=== PATIENT | male | born 1990 | race Caucasian/White ===

== ENCOUNTER 2017-12-04 11:05 | Emergency (ER) | payer MEDICAID ==
[~2017-12-04] VITALS: Ht 177.8 cm; Wt 73.5 kg
[2017-12-04 11:35] VITALS: Ht 177.8 cm; Wt 73.5 kg
[2017-12-04 13:52] VITALS: BP 122/78
== END 2017-12-04 13:52 | disposition home or self-care (01) ==
LOC: ED 11:05
DX: K29.70 Gastritis, unspecified, without bleeding (principal); F19.10 Other psychoactive substance abuse, uncomplicated; G89.29 Other chronic pain; M54.2 Cervicalgia; M54.9 Dorsalgia, unspecified; R03.0 Elevated blood-pressure reading, without diagnosis of hypertension; M25.519 Pain in unspecified shoulder; J45.909 Unspecified asthma, uncomplicated; F17.210 Nicotine dependence, cigarettes, uncomplicated; Z71.6 Tobacco abuse counseling
CPT/HCPCS: 87491; 87591; 99406